=== PATIENT | female | born 1935 | race Caucasian/White ===

== ENCOUNTER 2016-10-06 11:49 | Day surgery (SDC) | payer MEDICARE, OTHER ==
[2016-09-24 16:59] LABS: CALCIUM, SERUM 8.4 MG/DL (8.5-10.4); CHLORIDE, SERUM 106 MMOL/L (96-112); CO2 (CARBON DIOXIDE) 24 MMOL/L (24-34); CREATININE 1.66 MG/DL (0.55-1.02); GFR AFRICAN AMERICAN 33 ML/MIN (>=60); GFR NON AFRICAN AMERICAN 29 ML/MIN (>=60); GLUCOSE, SERUM 112 MG/DL (60-99); POTASSIUM, SERUM 4.8 MMOL/L (3.5-5.3); SODIUM, SERUM 140 MMOL/L (135-148)
[2016-09-24 17:00] LABS: BUN (BLOOD UREA NITROGEN) 29 MG/DL (6-23)
--- NOTE | ~2016-10-06 | OP ---
Record Of Operation [facility] [address] [place]. [address] NAME: AGUSTÍN BARTON : 37 STATUS : PRE [facility] [place] PAT#: [id number] AGE: 81 ADM/REG DATE : MR#: [id number] REPORT SERV DATE: 10/06/16 DICTATED BY: KIMBERLI MEJIA DATE: 10/06/16 REPORT STATUS : Draft TRANSCRIBED BY: MODL DATE: 10/06/16 DATE OF PROCEDURE: 10/06/2016 PREOPERATIVE DIAGNOSES: 1. Left carpal tunnel syndrome. 2. Left cubital tunnel syndrome. POSTOPERATIVE DIAGNOSES: 1. Left carpal tunnel syndrome. 2. Left cubital tunnel syndrome. PROCEDURE: 1. Left carpal tunnel release. 2. Left cubital tunnel in situ release. SURGEON: Kimberli Mejia M.D. UNIFORMS SALES REPRESENTATIVE: Mustapha Larose. ANESTHESIA: [place] block with MAC. ESTIMATED BLOOD LOSS: 1 mL. COMPLICATIONS: None. DISPOSITION: The patient tolerated the procedure well and was brought to recovery room in stable condition. PROCEDURE NOTE: The patient was brought to the operating room and placed in a supine position. After a [place] block was administered by the Anesthesia Department, the left upper extremity was prepped and draped in usual sterile manner. A surgical time-out was performed and all were in agreement. Carpal tunnel release was carried out by taking a 15-blade scalpel and making a 3 to 4 cm longitudinal incision starting at the volar wrist crease and directed distally in line with the ring finger. After the skin was incised, the palmar fascia was identified, incised along the length of its fibers and then the entire transverse carpal ligament from its most proximal to its most distal border was incised just radial to the hook of the hamate. In doing so, the median nerve in the rest of the carpal tunnel structures were decompressed. The wound was irrigated and skin was closed with deep and running Monocryl suture. Cubital tunnel release was carried out by taking a 15-blade scalpel, making a 4-5 cm longitudinal incision centered over the cubital tunnel, which was approximately 1 to 2 cm posterior to the medial epicondyle. After the skin was incised, blunt dissection was carried out taking care to protect superficial nerves in the area and the cubital tunnel retinaculum was identified and carefully incised taking care to protect the underlying ulnar Record Of [place] [address] [place] [address] NAME: AGUSTÍN BARTON : 37 STATUS : [place] [facility] [place] PAT#: [id number] AGE: 81 ADM/REG DATE : MR#: [id number] REPORT SERV DATE: 10/06/16 DICTATED BY: KIMBERLI MEJIA DATE: 10/06/16 REPORT STATUS : Draft TRANSCRIBED BY: MODL DATE: 10/06/16 nerve. More distally, the confluence of the two heads of the FCU were divided and more proximally, a portion of the intermuscular septum and superficial fascia of the arm was divided. Adequate decompression was noted. The wound was irrigated and the skin was closed with deep and running Monocryl suture. Steri-Strips and sterile dressing were applied. Tourniquet was released. Arm was placed in a sling and the patient was then brought to recovery room. TIAN/SUSANNE Kimberli Mejia M.D. / [id number] CC: Hitesh Moore M.D.
[2016-10-06 10:59] LABS: BUN (BLOOD UREA NITROGEN) 33 MG/DL (6-23); CALCIUM, SERUM 8.8 MG/DL (8.5-10.4); CHLORIDE, SERUM 110 MMOL/L (96-112); CO2 (CARBON DIOXIDE) 22 MMOL/L (24-34); GFR AFRICAN AMERICAN 38 ML/MIN (>=60); GFR NON AFRICAN AMERICAN 33 ML/MIN (>=60); GLUCOSE, SERUM 119 MG/DL (60-99); POTASSIUM, SERUM 4.6 MMOL/L (3.5-5.3); SODIUM, SERUM 140 MMOL/L (135-148)
[~2016-10-06 11:49] MED LIST: ALLEGRA180 PO; ASA5GR PO; CAT1 PO; CLIMARA 0.050.05 MG TOP; CLINDA150 PO; COLCH6 PO; ELIQUIS 2.5 MG2.5 MG PO; EPI IM; EPIPEN0.3 IM; FLECAINIDE100 MG PO; GLUCPH PO; IRON325 MG PO; LEVOTHROID112 MCG PO; LEVOTHYROXIN100 MCG PO; LEVOTHYROXIN50 MCG PO; LIPITOR10 PO; LOP25 PO; MAX25 PO; MOBIC15 MG PO; MONO20 PO; NEXIUM40 PO; NIASPAN500 PO; NORV25 PO; OTC IRON PO; PRILO PO; PRIN10 PO; PROTONIX PO; TAMBOCOR PO; TOPXL25 PO; ULTRAM50 PO; VITAMIN D1000 UNI1 PO; VITAMIN D31000 UNIT PO; X5 PO; Z300 PO; ZANTAC150 MG PO; ZETIA PO; ZOFRAN ODT4 MG PO
[2017-03-22] MEDS ORDERED: Z300 PO (16:08)
[2017-03-22] MEDS ORDERED: NORV10 PO (16:08)
[2017-03-22] MEDS ORDERED: CLIMARA PRO TOP (16:08)
[2017-03-22] MEDS ORDERED: CAT1 PO (16:09)
[2017-03-22] MEDS ORDERED: COLCRYS0.6 MG PO (16:09)
[2017-03-22] MEDS ORDERED: EPIPEN0.3 IM (16:10)
[2017-03-22] MEDS ORDERED: ELIQUIS 2.5 MG2.5 MG PO (16:10)
[2017-03-22] MEDS ORDERED: MONO20 PO (16:10)
[2017-03-22] MEDS ORDERED: LEVOTHYROXIN100 MCG PO (16:11)
[2017-03-22] MEDS ORDERED: GLUCPH PO (16:12)
[2017-03-22] MEDS ORDERED: LEVOTHYROXIN50 MCG PO (16:12)
[2017-03-22] MEDS ORDERED: TOPXL25 PO (16:13)
[2017-03-22] MEDS ORDERED: ULTRAM50 PO (16:13)
[2017-03-22] MEDS ORDERED: PROTONIX PO (16:13)
[2017-03-22] MEDS ORDERED: VITAMIN D31000 UNIT PO (16:13)
[2017-03-22] MEDS ORDERED: ZANTAC150 MG PO (16:14)
[2017-03-22] MEDS ORDERED: ZETIA PO (16:14)
[2017-03-22] MEDS ORDERED: LIPITOR10 PO (16:25)
[2017-03-25] MEDS ORDERED: ELIQUIS 5 MG TAB5 MG PO (14:01)
[2017-03-25] MEDS ORDERED: COREG3 PO (14:03)
== END 2016-10-06 23:59 | disposition home or self-care (01) ==
LOC: SDC 11:49
PROVIDERS: Orthopaedic Surgery Hand Surgery
PROC: 01N50ZZ Release Median Nerve, Open Approach (ICD-10-PCS; principal; 2016-10-06 11:45)
PROC: 01N40ZZ Release Ulnar Nerve, Open Approach (ICD-10-PCS; 2016-10-06 11:45)
DX: G56.02 Carpal tunnel syndrome, left upper limb (principal); G56.22 Lesion of ulnar nerve, left upper limb; Z88.0 Allergy status to penicillin; Z88.5 Allergy status to narcotic agent; Z88.7 Allergy status to serum and vaccine; I13.0 Hypertensive heart and chronic kidney disease with heart failure and stage 1 through stage 4 chronic kidney disease, or unspecified chronic kidney disease; D50.9 Iron deficiency anemia, unspecified; N18.9 Chronic kidney disease, unspecified; I50.9 Heart failure, unspecified; E11.22 Type 2 diabetes mellitus with diabetic chronic kidney disease; E78.00 Pure hypercholesterolemia, unspecified; M10.9 Gout, unspecified; E03.9 Hypothyroidism, unspecified; F32.9 Major depressive disorder, single episode, unspecified; F41.9 Anxiety disorder, unspecified; Z95.0 Presence of cardiac pacemaker; Z91.012 Allergy to eggs; Z90.710 Acquired absence of both cervix and uterus; Z90.49 Acquired absence of other specified parts of digestive tract; Z98.41 Cataract extraction status, right eye; Z98.42 Cataract extraction status, left eye; Z96.1 Presence of intraocular lens; Z98.890 Other specified postprocedural states; Z79.01 Long term (current) use of anticoagulants; Z79.890 Hormone replacement therapy; Z79.84 Long term (current) use of oral hypoglycemic drugs; Z79.899 Other long term (current) drug therapy
CPT/HCPCS: 36415; 80048; 82962; 85014; 85018; 93005; J3010

== ENCOUNTER 2016-10-20 11:17 | Day surgery (SDC) | payer MEDICARE, OTHER ==
[2016-10-15 16:43] LABS: HEMATOCRIT 36.7 % (36.0-48.0); HEMOGLOBIN 11.1 g/dL (12.0-16.0)
[2016-10-15 16:50] LABS: BUN (BLOOD UREA NITROGEN) 30 MG/DL (6-23); CALCIUM, SERUM 8.8 MG/DL (8.5-10.4); CHLORIDE, SERUM 107 MMOL/L (96-112); CO2 (CARBON DIOXIDE) 23 MMOL/L (24-34); CREATININE 1.34 MG/DL (0.55-1.02); GFR AFRICAN AMERICAN 43 ML/MIN (>=60); GFR NON AFRICAN AMERICAN 37 ML/MIN (>=60); GLUCOSE, SERUM 103 MG/DL (60-99); POTASSIUM, SERUM 4.6 MMOL/L (3.5-5.3); SODIUM, SERUM 140 MMOL/L (135-148)
--- NOTE | ~2016-10-20 | OP ---
Record Of [facility] [address] [facility] [place] [address] NAME: AGUSTÍN BARTON : 37 STATUS : REG [facility] [place] PAT#: [id number] AGE: 81 ADM/REG DATE : 10/20/16 MR#: [id number] REPORT SERV DATE: 10/20/16 DICTATED BY: KIMBERLI MEJIA DATE: 10/20/16 REPORT STATUS : Draft TRANSCRIBED BY: MODL DATE: 10/20/16 DATE OF PROCEDURE: 10/20/2016 PREOPERATIVE DIAGNOSES: 1. Right small finger trigger finger. 2. Right carpal tunnel syndrome. 3. Right cubital tunnel syndrome. PROCEDURES: 1. Right small finger trigger finger release. 2. Right carpal tunnel release. 3. Right cubital tunnel in situ release. PHYSICIAN: Kimberli Mejia M.D. AIRCRAFT LAUNCH AND RECOVERY TECHNICIAN: Teena. ANESTHESIA: [place] block and MAC. ESTIMATED BLOOD LOSS: 5 mL. IV FLUIDS: 1 L of crystalloid. COMPLICATIONS: None. DISPOSITION: The patient tolerated the procedure well and was brought to the recovery room in stable condition. PROCEDURE NOTE: The patient was brought to the operating room and placed in the supine position. After IV sedation was given and [place] block was administered by the Anesthesia Department, the right upper extremity distal to the tourniquet was prepped and draped in the usual sterile manner. Surgical time-out was performed and all were in agreement. Trigger finger release was carried out by taking a 15-blade scalpel and making a 1.5 cm longitudinal incision incorporating Naya's line directly overlying the A1 kierra of the right small finger. Blunt dissection was carried out taking care to protect neurovascular structures and the A1 kierra from its most proximal to its most distal border was incised with a 15-blade scalpel taking care to protect the underlying flexor tendons. The flexor tendons were put on traction and the fingers put through range of motion. No obvious triggering noted. Carpal tunnel release was carried out by taking a 15-blade scalpel making a 3 to 4 cm longitudinal incision starting at the volar wrist crease and directed distally. The incision was mostly in line with the ring finger incorporating a portion of the perithenar crease after the skin was incised. The palmar fascia was identified and incised along the length of its fibers to reveal the underlying transverse carpal ligament. The entire Record Of [place] [address] [place]. [address] NAME: AGUSTÍN BARTON : 37 STATUS : REG [facility]#: [id number] AGE: 81 ADM/REG DATE : 10/20/16 MR#: [id number] REPORT SERV DATE: 10/20/16 DICTATED BY: KIMBERLI MEJIA DATE: 10/20/16 REPORT STATUS : Draft TRANSCRIBED BY: MODL DATE: 10/20/16 transverse carpal ligament from its most proximal to its most distal border was incised just radial to the hook of the hamate. In doing so, the median nerve and the rest of the contents of the carpal tunnel appeared well decompressed. The wound was irrigated and attention was then directed to the cubital tunnel release. Cubital tunnel release was carried out by taking a 15-blade scalpel and making a 5 cm longitudinal incision centered over the cubital tunnel which was approximately 1 to 2 cm posterior to the medial epicondyle. After the skin was incised, blunt dissection was carried out and the cubital tunnel retinaculum was carefully identified and incised taking care to protect the underlying ulnar nerve. More distally, the confluence of the two heads of the FCU were divided and more proximally, a portion of the intermuscular septum and superficial fascia of the arm were divided. In doing so, the ulnar nerve appeared well decompressed in the area. All wounds were irrigated and all wounds were closed with deep and running Monocryl suture. Steri-Strips and sterile dressing was applied. The arm was placed in a sling after the tourniquet was released. The patient was ready be brought to the recovery room. TIAN/SUSANNE Kimberli Mejia M.D. / [id number] CC: Hitesh Moore M.D.
--- NOTE | ~2016-10-20 | OP ---
Record Of Operation [facility] [place]. [address] NAME: AGUSTÍN BARTON : 37 STATUS : REG [facility]#: [id number] AGE: 81 ADM/REG DATE : 10/20/16 MR#: [id number] REPORT SERV DATE: 10/20/16 DICTATED BY: KIMBERLI MEJIA DATE: 10/20/16 REPORT STATUS : Draft TRANSCRIBED BY: MODL DATE: 10/20/16 DATE OF PROCEDURE: 10/20/2016 POSTOPERATIVE DIAGNOSES: 1. Right small finger trigger finger. 2. Right carpal tunnel syndrome. 3. Right cubital tunnel syndrome. PROCEDURES: 1. Right trigger finger release. 2. Right carpal tunnel release. 3. Right cubital tunnel in situ release. SURGEON: Kimberli Mejia MD. MEDICAL STAFF CREDENTIALING COORDINATOR: Evonne. ANESTHESIA: [place] block with MAC. ESTIMATED BLOOD LOSS: 5 mL. IV FLUIDS: 1 L. COMPLICATIONS: None. DICTATION ENDS HERE TIAN/SUSANNE Kimberli Mejia M.D. / [id number] CC: Hitesh Moore M.D.
[2017-03-22] MEDS ORDERED: CLIMARA PRO TOP (16:08)
[2017-03-22] MEDS ORDERED: Z300 PO (16:08)
[2017-03-22] MEDS ORDERED: NORV10 PO (16:08)
[2017-03-22] MEDS ORDERED: COLCRYS0.6 MG PO (16:09)
[2017-03-22] MEDS ORDERED: CAT1 PO (16:09)
[2017-03-22] MEDS ORDERED: ELIQUIS 2.5 MG2.5 MG PO (16:10)
[2017-03-22] MEDS ORDERED: EPIPEN0.3 IM (16:10)
[2017-03-22] MEDS ORDERED: MONO20 PO (16:10)
[2017-03-22] MEDS ORDERED: LEVOTHYROXIN100 MCG PO (16:11)
[2017-03-22] MEDS ORDERED: LEVOTHYROXIN50 MCG PO (16:12)
[2017-03-22] MEDS ORDERED: GLUCPH PO (16:12)
[2017-03-22] MEDS ORDERED: VITAMIN D31000 UNIT PO (16:13)
[2017-03-22] MEDS ORDERED: PROTONIX PO (16:13)
[2017-03-22] MEDS ORDERED: TOPXL25 PO (16:13)
[2017-03-22] MEDS ORDERED: ULTRAM50 PO (16:13)
[2017-03-22] MEDS ORDERED: ZANTAC150 MG PO (16:14)
[2017-03-22] MEDS ORDERED: ZETIA PO (16:14)
[2017-03-22] MEDS ORDERED: LIPITOR10 PO (16:25)
[2017-03-25] MEDS ORDERED: ELIQUIS 5 MG TAB5 MG PO (14:01)
[2017-03-25] MEDS ORDERED: COREG3 PO (14:03)
== END 2016-10-20 21:14 | disposition home or self-care (01) ==
LOC: SDC 11:17
PROVIDERS: Orthopaedic Surgery Hand Surgery
PROC: 01N50ZZ Release Median Nerve, Open Approach (ICD-10-PCS; principal; 2016-10-20 12:45)
PROC: 01N40ZZ Release Ulnar Nerve, Open Approach (ICD-10-PCS; 2016-10-20 12:45)
DX: G56.01 Carpal tunnel syndrome, right upper limb (principal); G56.21 Lesion of ulnar nerve, right upper limb; M65.351 Trigger finger, right little finger; E78.5 Hyperlipidemia, unspecified; R47.1 Dysarthria and anarthria; K21.9 Gastro-esophageal reflux disease without esophagitis; M10.9 Gout, unspecified; E03.9 Hypothyroidism, unspecified; F41.9 Anxiety disorder, unspecified; E11.9 Type 2 diabetes mellitus without complications; I11.0 Hypertensive heart disease with heart failure; I50.9 Heart failure, unspecified; Z95.0 Presence of cardiac pacemaker; Z79.01 Long term (current) use of anticoagulants; Z88.0 Allergy status to penicillin; Z88.5 Allergy status to narcotic agent; Z91.012 Allergy to eggs
CPT/HCPCS: 36415; 80048; 82962; 85014; 85018; 93005; J0690; J2405; J3010